=== PATIENT | male | born 2000 | race Caucasian/White ===

== ENCOUNTER 2021-09-22 00:09 | Inpatient (IN) | payer OTHER ==
[2021-09-22] MEDS ORDERED: Ketamine 50 MG/ML (10ML VIAL) ONE (00:17)
[2021-09-22] MEDS ORDERED: HYDROcodone/Acetaminophen 10/325 mg Tablet ONE (01:03)
[2021-09-22] MEDS ORDERED: Ketorolac Tromethamine 30 MG/ML VIAL ONE ×2 (01:04→08:10)
[2021-09-22] MEDS ORDERED: Ondansetron ODT 4 MG TAB PO PRN (02:56)
[2021-09-22] MEDS ORDERED: Promethazine HCl 25 MG/ML VIAL IM PRN ×3 (02:56→10:20)
[2021-09-22] MEDS ORDERED: Dextrose 50% Abboject 50 ML SYRINGE SLOW IVP PRN (02:56)
[2021-09-22] MEDS ORDERED: Ondansetron PF 4 MG/2 ML Vial IVP PRN (02:56)
[2021-09-22] MEDS ORDERED: traMADol HCl 50 MG TAB PO PRN ×2 (02:56)
[2021-09-22] MEDS ORDERED: Dextrose 5% in Water 1,000 ML IV PRN (02:56)
[2021-09-22] MEDS ORDERED: Ketorolac Tromethamine 30 MG/ML VIAL IVP SCH (02:56)
[2021-09-22] MEDS ORDERED: hydrALAZINE 20 MG/ML VIAL SLOW IVP PRN (02:56)
[2021-09-22] MEDS ORDERED: Morphine 4 MG/ML VIAL SLOW IVP PRN (03:00)
[2021-09-22] MEDS: Sodium Chloride 0.9% 1,000 ML IV SCH ×3 (03:02→17:33)
[2021-09-22 03:06] VITALS: BMI 31.4
[2021-09-22] MEDS: Acetaminophen 500 MG TAB PO SCH ×3 (03:45→15:19)
[2021-09-22] MEDS: Ibuprofen 800 MG TAB PO SCH ×2 (03:46→14:55)
[2021-09-22 06:04] LABS: #Lymphocytes 1.5 thou/uL (1.20-3.40); #Monocytes 1.5 thou/uL (0.11-0.59); #Neutrophils 9.8 thou/uL (1.40-6.50); %Basophils 0.2 % (0.0-1.0); %Eosinophils 0.1 % (0.0-10.0); %Lymphocytes 11.8 % (28.0-48.0); %Monocytes 11.5 % (0.0-4.0); %Neutrophils 76.4 % (31.0-61.0); Mean Corpuscular HGB CONC 34.2 g/dL (32.0-36.0); Mean Corpuscular Hemoglobin 31.9 pg (25.0-35.0); Mean Corpuscular Volume 93.2 fL (78.0-98.0); Mean Platelet Volume 7.7 fL (7.4-10.4); Platelet Count 204 thou/uL (130-400); RBC Distribution Width 11.8 % (11.5-14.5); Red Blood Cell (RBC) Count 4.06 mill/uL (4.00-5.20); White Blood Cell (WBC) Count 12.9 thou/uL (4.8-10.8)
[2021-09-22 06:27] LABS: Anion Gap 12 mmol/L (10-20); BUN (Urea Nitrogen) 23 mg/dL (8.9-20.6); Calc. Creatinine Clearance 189 mL/min (70-130); Calcium 8.7 mg/dL (7.8-10.44); Carbon Dioxide 21 mmol/L (22-29); Chloride 110 mmol/L (98-107); Glucose 107 mg/dL (70-105); Potassium 4.4 mmol/L (3.5-5.1); Sodium 139 mmol/L (136-145)
[2021-09-22] MEDS ORDERED: ceFAZolin 2 GM/DEX 5% 100 ML BAG ONE (07:27)
[2021-09-22] MEDS ORDERED: Fentanyl 100 MCG/2 ML VIAL ONE ×2 (07:27→08:14)
[2021-09-22] MEDS: Famotidine 20 MG TAB PO SCH ×2 (07:32→21:17)
[2021-09-22] MEDS ORDERED: ceFAZolin Sodium/D5W 2 GM in Premix Bag 1 BAG IVPB SCH ×2 (07:45→17:00)
[2021-09-22] MEDS ORDERED: Ondansetron PF 4 MG/2 ML Vial ONE (08:10)
[2021-09-22] MEDS ORDERED: PROPOFOL 200 MG/20 ML VIAL ONE (08:10)
[2021-09-22] MEDS ORDERED: Dexamethasone 20 MG/5 ML VIAL ONE (08:10)
[2021-09-22] MEDS ORDERED: Rocuronium Bromide 10 MG/ML (10ML VIAL) ONE (08:10)
[2021-09-22] MEDS ORDERED: HYDROmorphone 2 MG/ML VIAL ONE (08:41)
[2021-09-22] MEDS ORDERED: PACU-Morphine 4MG/ML VIAL SLOW IVP PRN (10:20)
[2021-09-22] MEDS ORDERED: HYDROmorphone 2 MG/ML VIAL SLOW IVP PRN (10:20)
[2021-09-22] MEDS ORDERED: Promethazine HCl 25 MG/ML VIAL IVPB PRN (10:20)
[2021-09-22] MEDS ORDERED: Ondansetron HCl/PF 4 MG/2 ML Vial IVP PRN (10:20)
[2021-09-22] MEDS ORDERED: CEFAZOLIN 2 GM in Premix Bag 1 BAG IVPB SCH (15:00)
[2021-09-22] MEDS: Ibuprofen 200 MG TAB PO SCH (16:01)
[2021-09-22] MEDS: Cyclobenzaprine 10 MG TAB PO PRN (16:01)
[2021-09-22] MEDS: ceFAZolin Sodium/D5W 2 GM in Premix Bag 1 BAG IVPB SCH (17:10)
[2021-09-22] MEDS ORDERED: Acetaminophen/Codeine 30-300mg Tablet PO PRN ×2 (17:38)
[2021-09-22] MEDS: traMADol HCl 50 MG TAB PO SCH (18:37)
[2021-09-22] MEDS: Acetaminophen 325 MG TAB PO SCH (18:37)
[2021-09-22] MEDS: Ketorolac Tromethamine 30 MG/ML VIAL IVP PRN (21:18)
[2021-09-22] MEDS: Acetaminophen/Codeine 30-300mg Tablet PO PRN (22:32)
[2021-09-23] MEDS: Acetaminophen 325 MG TAB PO SCH ×3 (00:36→11:22)
[2021-09-23] MEDS: traMADol HCl 50 MG TAB PO SCH ×3 (00:37→11:23)
[2021-09-23] MEDS: Ibuprofen 200 MG TAB PO SCH ×2 (00:38→09:04)
[2021-09-23] MEDS: ceFAZolin Sodium/D5W 2 GM in Premix Bag 1 BAG IVPB SCH ×2 (01:34→09:04)
[2021-09-23] MEDS: Sodium Chloride 0.9% 1,000 ML IV SCH ×2 (05:37→05:51)
[2021-09-23] MEDS: Cyclobenzaprine 10 MG TAB PO PRN (05:46)
[2021-09-23] MEDS: Ketorolac Tromethamine 30 MG/ML VIAL IVP PRN (05:47)
[2021-09-23 05:55] LABS: #Eosinphils 0.1 thou/uL (0.0-0.7); #Lymphocytes 2.1 thou/uL (1.20-3.40); #Neutrophils 6.2 thou/uL (1.40-6.50); %Basophils 0.3 % (0.0-1.0); %Eosinophils 0.8 % (0.0-10.0); %Lymphocytes 22.6 % (28.0-48.0); %Monocytes 10.8 % (0.0-4.0); %Neutrophils 65.6 % (31.0-61.0); Mean Corpuscular Hemoglobin 32.8 pg (25.0-35.0); Mean Corpuscular Volume 93.6 fL (78.0-98.0); Mean Platelet Volume 7.5 fL (7.4-10.4); Platelet Count 155 thou/uL (130-400); RBC Distribution Width 11.5 % (11.5-14.5); Red Blood Cell (RBC) Count 3.34 mill/uL (4.00-5.20); White Blood Cell (WBC) Count 9.5 thou/uL (4.8-10.8)
[2021-09-23] MEDS: Famotidine 20 MG TAB PO SCH (09:04)
[2021-09-23] MEDS: Acetaminophen/Codeine 30-300mg Tablet PO PRN (09:06)
[2021-09-23] MEDS ORDERED: Magnesium Citrate 300 ML BOT PO SCH (09:52)
[2021-09-23] MEDS ORDERED: Senokot S 8.6-50 MG TAB PO SCH ×2 (10:00→21:00)
[2021-09-23 13:05] VITALS: BP 143/77; TEMP 98.4
== END 2021-09-23 13:11 | disposition home or self-care (01) | DRG 494 ==
LOC: ERS 00:09 → SURG A 00:55
PROVIDERS: ADMIT Surgery; ATTEND Surgery
PROC: 0QSG06Z Reposition Right Tibia with Intramedullary Internal Fixation Device, Open Approach (ICD-10-PCS; principal; 2021-09-22)
DX: S82.201A Unspecified fracture of shaft of right tibia, initial encounter for closed fracture (principal); S80.811A Abrasion, right lower leg, initial encounter; S82.401A Unspecified fracture of shaft of right fibula, initial encounter for closed fracture; V23.4XXA Motorcycle driver injured in collision with car, pick-up truck or van in traffic accident, initial encounter; Y92.410 Unspecified street and highway as the place of occurrence of the external cause
CPT/HCPCS: 29105; 36415; 76000; 80048; 85025; 96374; 99152; C1713; J1100; J1170; J1885; J2270; J2405; J2704; J3010; J7050